=== PATIENT | female | born 1965 | race Caucasian/White ===

== ENCOUNTER 2024-02-15 12:51 | Emergency (ER) | payer MEDICAID, SELFPAY ==
[2024-02-15] VITALS (32 sets, daily range): BP systolic 86–117; BP diastolic 55–87; PULSE 51–83; RESP 13–20; TEMP 36.7–36.8; O2SAT 94–100; BMI 26.5
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
--- NOTE | 2024-02-15 12:53 | ECG_ITS ---
APPROVED REPORT Exam: Resting ECG HR:70 bpm ECG Measurements Heart Rate 70 AXES PA 174 P 6 QRSd 90 QRS 21 QT 391 T 9 QTc 412 Conclusion SINUS RHYTHM MODERATE ST DEPRESSION [0.05+ mV ST DEPRESSION] ABNORMAL ECG No STEMI Electronically signed by : AUGIE SAUNDERS, 02/16/2024 06:31:02
[2024-02-15] MEDS: CHARCOAL ACTIVATED 50GM (240ML) TUBE 50 GM PO (13:01)
[2024-02-15 13:04] LABS: Basophils # 0.1 K/mm3 (0-0.2); Basophils % 1.1 % (0.1-2.0); Eosinophils # 0.3 K/mm3 (0.0-0.4); Eosinophils % 4.3 % (0.1-12.0); Hematocrit 38.1 % (37.0-47.0); Hemoglobin 12.5 g/dL (12.2-16.2); Lymphocytes # 1.6 K/mm3 (0.7-4.5); Mean Corpuscular HGB Conc 32.9 g/dL (31.8-35.4); Mean Corpuscular Hemoglobin 30.5 pg (27.0-31.2); Mean Corpuscular Volume 92.5 fl (81-99); Mean Platelet Volume 8.1 fl (7.4-10.4); Monocytes # 0.3 K/mm3 (0.1-1.0); Monocytes % 4.4 % (1.7-9.3); Neutrophils # 3.6 K/mm3 (1.8-7.8); Neutrophils % 62.2 % (37.0-80.0); Platelet Count 307 K/mm3 (142-424); Red Blood Count 4.11 M/mm3 (4.20-5.40); Red Cell Distribution Width 13.8 % (11.5-17.5); White Blood Count 5.8 K/mm3 (4.8-10.8)
[2024-02-15 13:11] LABS: Albumin Level 3.8 g/dl (3.5-5.0); Chloride 106 mmol/L (98-107); Potassium 4.1 mmoL/L (3.5-5.1); Sodium 138 mmol/L (136-145)
[2024-02-15 13:14] LABS: Alanine Aminotransferase 21 U/L (12-78); Albumin/Globulin Ratio 1.4 (1.1-1.8); Alkaline Phosphatase 64 U/L (38-126); Anion Gap 6.1 mEq/L (5-15); Aspartate Amino Transferase 34 U/L (14-36); Bilirubin,Total 0.5 mg/dl (0.2-1.3); Blood Urea Nitrogen 12 mg/dl (7-17); Calcium 9.3 mg/dl (8.4-10.2); Carbon Dioxide 30 mmol/L (22.0-30.0); Creatinine Clearance Estimated 104 mL/min (50-200); Estimated Glomerular Filt Rate 102 ml/min (>60); GFR (African American) 123 ML/MIN (>60); Globulin 2.7 g/dL (1.3-3.2); Glucose 92 mg/dl (74-100); Total Protein,Serum 6.5 g/dl (6.3-8.2)
[2024-02-15 13:24] LABS: Acetaminophen < 10 ug/ml (10-30); Ethyl Alcohol < 10 mg/dl (0-10); Salicylate < 1.0 mg/dL (2.0-20.0)
[2024-02-15] MEDS: 0.9 % SODIUM CHLORIDE 1000ML 1,000 ML 999 ML IV ×2 (13:34→15:25)
[2024-02-15 13:53] LABS: Microscopic, Urine URINE MICROSCOPIC (MICROSCOPIC)
[2024-02-15 14:09] LABS: Appearance,Urine CLEAR (Clear); Bilirubin,Urine Negative (Negative); Blood, Urine Negative (Negative); Color,Urine YELLOW (Yellow); Glucose,Urine (UA) Negative (Negative); Ketones,Urine Negative (Negative); Leukocyte Esterase,Urine Negative (Negative); Nitrate,Urine Negative (Negative); Protein,Urine Negative (Negative); Urobilinogen,Urine 0.2 EU/dl (0.2)
[2024-02-15 14:21] LABS: Barbiturates Screen,Urine Negative ng/ml (<200)
[2024-02-15 14:22] LABS: Benzodiazepines Screen,Urine Positive ng/ml (<200)
[2024-02-15 14:23] LABS: Amphetamine/Metha Screen,Urine Negative ng/ml (<1000); Cannabinoid Screen,Urine Negative ng/ml (<50)
[2024-02-15 14:24] LABS: Cocaine Screen,Urine Negative ng/ml (<300)
[2024-02-15 14:25] LABS: Methadone Screen,Urine Negative ng/ml (<300); Opiate Screen,Urine Negative ng/ml (<300)
[2024-02-15 14:26] LABS: Phencyclidine Screen,Urine Negative ng/ml (<25)
--- NOTE | 2024-02-15 14:27 | PC.NURSE ---
pt is sleeping in bed and visitor at bs as we myself for 1:1
--- NOTE | 2024-02-15 14:33 | PC.NURSE ---
[facility] per Dr. Henriquez, RN will call back.
--- NOTE | 2024-02-15 14:47 | PC.NURSE ---
[facility] called and spoke with Dr. Henriquez
[2024-02-15 14:50] LABS: HIV (1&2) Antibody Rapid NONREACTIVE (NONREACTIVE)
--- NOTE | 2024-02-15 15:26 | PC.NURSE ---
Called EMS and advised them of the transfer and also to let them know it would be ready right at 5:00 due to Sathish ICU Doctor asking us to keep her on observation unil then
--- NOTE | 2024-02-15 17:15 | PC.NURSE ---
call made to [facility] for pt transport. they will be here when a truck is available.
--- NOTE | 2024-02-15 17:41 | PC.NURSE ---
Pt's siter Shanita called for an update, asked pt if that was ok and she she stated tiff. Updated pt sister that pt is stable and being transferred to [facility]
--- NOTE | 2024-02-15 17:56 | PC.NURSE ---
Gave report to EMS. Also updated Poison Control in regards to labs. Updated them on POC.
[2024-02-16 05:11] LABS: HCV Ab Non Reactive (Non Reactive)
== END 2024-02-15 18:22 | disposition other institution (70) ==
PROVIDERS: Student in an Organized Health Care Education/Training Program; Emergency Provider Emergency Medicine
DX: T50.902A Poisoning by unspecified drugs, medicaments and biological substances, intentional self-harm, initial encounter (principal); R41.82 Altered mental status, unspecified
CPT/HCPCS: 80053; 80307; 80320; 80329; 81001; 85025; 86803; 87389; 93005; 96360; 96361; 99284; G0480; J7030